=== PATIENT | female | born 1975 | race African-American/Black ===

== ENCOUNTER 2019-03-14 21:44 | Emergency (ER) | payer BC, OTHER ==
[~2019-03-14] VITALS: Ht 176.5 cm; Wt 112.8 kg
[~2019-03-14 21:44] MED LIST: IBUP800T48 PO; LORA10TA3 PO; ONDA4TAB14 PO
[2019-03-14 21:54] VITALS: Ht 176.5 cm; Wt 112.8 kg
[2019-03-14] MEDS: ONDANSETRON (ODT) 4 MG TAB ODT STA (23:59)
[2019-03-15] MEDS ORDERED: IBUPROFEN 200 MG TAB PO ONE
[2019-03-15] MEDS: ONDANSETRON (ODT) 4 MG TAB ODT STA (00:13)
[2019-03-15] MEDS ORDERED: DEXAMETHASONE 10 MG/ML 1 ML INJ PO ONE (00:30)
[2019-03-15 00:42] VITALS: BP 152/97; PULSE 75; RESP 18
== END 2019-03-15 00:45 | disposition home or self-care (01) ==
LOC: FTE 21:44
DX: J02.9 Acute pharyngitis, unspecified (principal)
CPT/HCPCS: 99283; J1100